=== PATIENT | female | born 1990 | race Caucasian/White ===

== ENCOUNTER → 2019-07-26 | Emergency (ER) | payer BC, MEDICAID, OTHER ==
[~2019-07-26] VITALS: Ht 160 cm; Wt 72.6 kg
[~2019-07-26] MED LIST: ALBUPOW26
[2019-07-26 12:15] VITALS: BP 138/96
== END | disposition left against medical advice (07) ==
LOC: ER 12:05
DX: R21 Rash and other nonspecific skin eruption (principal); Z53.21 Procedure and treatment not carried out due to patient leaving prior to being seen by health care provider

== ENCOUNTER 2019-08-23 16:51 | Emergency (ER) | payer BC ==
[~2019-08-23] VITALS: Ht 160 cm; Wt 72.6 kg
[2019-08-23 17:38] LABS: Urine Bacteria NONE SEEN /hpf (None Seen); Urine Blood 1+ /uL (Negative); Urine Mucus FEW (None Seen); Urine Specific Gravity 1.017 (1.001-1.035); Urine WBC 30 /hpf (0 - 5)
[2019-08-23 18:07] LABS: Basophils # (auto) 0.1 uL; Basophils % (auto) 1.2 % (0.0-2.0); Eosinophils # (auto) 0.1 uL; Eosinophils % (auto) 0.6 % (0.0-7.0); Hematocrit 42.6 % (36.0-46.0); Hemoglobin 14.5 g/dL (12.2-16.2); Lymphocytes # (auto) 2.8 uL; Lymphocytes % (auto) 23.9 % (10.0-50.0); Mean Corpuscular Hemoglobin 29.7 pg (28.0-32.0); Mean Corpuscular Hgb Conc. 34.1 g/dL (32.0-36.0); Mean Corpuscular Volume 87.1 fL (80.0-100.0); Monocytes # (auto) 0.4 uL; Monocytes % (auto) 3.8 % (0.0-12.0); Neutrophils # (auto) 8.3 uL; Neutrophils % (auto) 70.5 % (37.0-80.0); Platelet Count (auto) 302 10^3/uL (140-450); Red Blood Cells 4.89 10^6/uL (4.0-5.20); Red Cell Distribution Width 13.4 % (11.8-14.3); White Blood Cell 11.7 10^3/uL (4.4-10.8)
[2019-08-23 18:23] LABS: Albumin 4.2 g/dL (3.4-5.0); Calcium 9.2 mg/dL (8.5-10.1); Potassium 4.4 mmol/L (3.5-5.1)
[2019-08-23 18:25] LABS: BUN/Creatinine Ratio 16.4
[2019-08-23 18:28] LABS: Bilirubin, Total 0.4 mg/dL (0.2-1.0)
[2019-08-23 21:50] VITALS: BP 109/71
== END 2019-08-23 21:54 | disposition home or self-care (01) ==
LOC: ER 16:51
DX: N39.0 Urinary tract infection, site not specified (principal); J45.909 Unspecified asthma, uncomplicated; Z90.89 Acquired absence of other organs
CPT/HCPCS: 36415; 74176; 80053; 81001; 85025

== ENCOUNTER → 2019-12-28 | Emergency (ER) | payer BC ==
[~2019-12-28] VITALS: Ht 160 cm; Wt 72.6 kg
[~2019-12-28] MED LIST changes: +ACETAMINOPHEN 325 MG TAB PO ONE
[2019-12-28 17:35] LABS: Basophils # (auto) 0.1 10 ^3/uL (0-0.2); Basophils % (auto) 0.9 % (0.0-2.0); Eosinophils # (auto) 0 10 ^3/uL (0-0.8); Eosinophils % (auto) 0.3 % (0.0-7.0); Hematocrit 43.6 % (36.0-46.0); Hemoglobin 14.9 g/dL (12.2-16.2); Lymphocytes # (auto) 2.1 10 ^3/uL (0.4-5.4); Lymphocytes % (auto) 19.4 % (10.0-50.0); Mean Corpuscular Hemoglobin 29.8 pg (28.0-32.0); Mean Corpuscular Hgb Conc. 34.1 g/dL (32.0-36.0); Mean Corpuscular Volume 87.2 fL (80.0-100.0); Monocytes # (auto) 0.4 10 ^3/uL (0-1.3); Monocytes % (auto) 3.8 % (0.0-12.0); Neutrophils % (auto) 75.6 % (37.0-80.0); Nucleated Red Blood Cells % 0.1 %; Platelet Count (auto) 365 10^3/uL (140-450); Red Cell Distribution Width 13.2 % (11.8-14.3); White Blood Cell 10.6 10^3/uL (4.4-10.8)
[2019-12-28 17:53] LABS: Albumin 4.5 g/dL (3.4-5.0); Calcium 8.6 mg/dL (8.5-10.1); Potassium 3.9 mmol/L (3.5-5.1)
[2019-12-28 17:56] LABS: Bilirubin, Total 0.6 mg/dL (0.2-1.0); Total Protein 8.4 g/dL (6.4-8.2)
[2019-12-28 19:27] LABS: Urine Bacteria FEW /hpf (None Seen); Urine Blood 1+ /uL (Negative); Urine Mucus FEW (None Seen); Urine Specific Gravity 1.027 (1.001-1.035); Urine WBC 7 /hpf (0 - 5)
[2019-12-28 19:52] VITALS: BP 100/69
== END | disposition home or self-care (01) ==
LOC: ER 16:20
DX: N93.8 Other specified abnormal uterine and vaginal bleeding (principal); N39.0 Urinary tract infection, site not specified; J45.909 Unspecified asthma, uncomplicated; Z32.02 Encounter for pregnancy test, result negative
CPT/HCPCS: 36415; 76856; 80053; 81001; 81025; 85025